=== PATIENT | male | born 1965 | race African-American/Black ===

== ENCOUNTER 2017-11-07 20:16 | Emergency (ER) | payer SELFPAY ==
[~2017-11-07] VITALS: Ht 180.3 cm; Wt 113.6 kg
[2017-11-07 20:17] VITALS: BP 149/83; PULSE 88; RESP 20; O2SAT 100
[2017-11-07 20:21] VITALS: BP_SYST 123; BP_SYST 149; BP_DIAS 83; BP_DIAS 84; PULSE 88; RESP 20; TEMP 98.6; O2SAT 100
[2017-11-07] MEDS: LORazepam 1 MG TAB PO ONE ×2 (20:30→20:38)
[2017-11-07] MEDS ORDERED: SODIUM CHLORIDE 0.9% FLUSH 10 ML FLUSH IVF PRN (20:30)
--- NOTE | 2017-11-07 20:36 | PD ---
HPI Chief Complaint: Chest Pain Time Seen by Provider: 20:19 Travel History International Travel<30 days: No Contact w/Intl Traveler<30days: No Traveled to known affect area: No History of Present Illness HPI This patient complains of chest pain. Location is center sternum. Feels like an aching pressure. Duration 2 hours. Severity is moderate. However it has resolved. He is currently pain-free. He has history of cardiac disease. He has 2 stents placed in his home town in [place]. He is on vacation. Patient is a hypertensive diabetic with severe sleep apnea and anxiety. No alleviating factors. No exacerbating factors. He was at a wineand cheese tasting event at a hotel and reportedly had 4 drinks. [facility] Past Medical History Medical History: Unable to Obtain Tetanus Vaccination: Unknown Influenza Vaccination: No Social History Alcohol Use: Yes (wine/today) Tobacco Use: No Substance Use: No Allergies-Medications (Allergen,Severity, Reaction): Coded Allergies: acetaminophen (Verified Allergy, Unknown, 11/07/17) hydrocodone (Verified Allergy, Unknown, 11/07/17) Reported Meds & Prescriptions Reported Meds & Active Scripts Active Active Prescriptions or Reported Medications Unobtainable Review of Systems General / Constitutional: No: Fever Eyes: No: Visual changes HENT: No: Headaches Cardiovascular: Positive: Chest Pain or Discomfort Respiratory: No: Shortness of Breath Gastrointestinal: No: Abdominal Pain Genitourinary: No: Dysuria Musculoskeletal: No: Pain Skin: No Rash Neurologic: No: Weakness Psychiatric: Positive: Anxiety, No: Depression Endocrine: No: Polydipsia Hematologic/Lymphatic: No: Easy Bruising Physical Exam Narrative GENERAL: Well-nourished, well-developed patient in no apparent distress. SKIN: Focused skin assessment reveals no rash and nodules. Skin is Warm and dry. HEAD: Atraumatic. Normocephalic. EYES: Pupils equal and round. No scleral icterus. No injection or drainage. ENT: No nasal bleeding or discharge. Mucous membranes pink and moist. NECK: Trachea midline. No JVD. CARDIOVASCULAR: Regular rate and rhythm. No murmur appreciated. RESPIRATORY: No accessory muscle use. Clear to auscultation. Breath sounds equal bilaterally. GASTROINTESTINAL: Abdomen soft, non-tender, nondistended. Hepatic and splenic margins not palpable. MUSCULOSKELETAL: No obvious deformities. No clubbing. No cyanosis. No edema. NEUROLOGICAL: Awake and alert. No obvious cranial nerve deficits. Motor grossly within normal limits. Normal speech. PSYCHIATRIC: Appropriate mood and affect; insight and judgment normal. Data Data Last Documented VS Vital Signs Date Time Temp Pulse Resp B/P (MAP) Pulse Ox O2 Delivery O2 Flow Rate FiO2 11/07/17 20:44 18 100 Room Air 11/07/17 20:21 98.6 88 Orders Orders Electrocardiogram (11/07/17 20:30) Basic Metabolic Panel (Bmp) (11/07/17 20:30) Ckmb (Isoenzyme) Profile (11/07/17 20:30) Complete Blood Count With Diff (11/07/17 20:30) Magnesium (Mg) (11/07/17 20:30) Prothrombin Time / Inr (Pt) (11/07/17 20:30) Act Partial Throm Time (Ptt) (11/07/17 20:30) Troponin I (11/07/17 20:30) Ecg Monitoring (11/07/17 20:30) Iv Access Insert/Monitor (11/07/17 20:30) Oximetry (11/07/17 20:30) Sodium Chloride 0.9% Flush (Ns Flush) (11/07/17 20:30) Alcohol (Ethanol) (11/07/17 20:30) Lorazepam (Ativan) (11/07/17 20:30) Lorazepam Inj (Ativan Inj) (11/07/17 21:00) Lorazepam Inj (Ativan Inj) (11/07/17 21:00) Restraints Non-Violent LISSA.Q3H (11/07/17 20:59) Drug Screen, Random Urine (11/07/17 20:59) Labs Laboratory Tests Test 11/07/17 20:37 White Blood Count 6.2 TH/MM3 Red Blood Count 4.14 MIL/MM3 Hemoglobin 12.2 GM/DL Hematocrit 35.2 % Mean Corpuscular Volume 85.0 FL Mean Corpuscular Hemoglobin 29.5 PG Mean Corpuscular Hemoglobin Concent 34.7 % Red Cell Distribution Width 12.7 % Platelet Count 155 TH/MM3 Mean Platelet Volume 10.1 FL Neutrophils (%) (Auto) 60.9 % Lymphocytes (%) (Auto) 25.1 % Monocytes (%) (Auto) 9.1 % Eosinophils (%) (Auto) 3.9 % Basophils (%) (Auto) 1.0 % Neutrophils # (Auto) 3.7 TH/MM3 Lymphocytes # (Auto) 1.6 TH/MM3 Monocytes # (Auto) 0.6 TH/MM3 Eosinophils # (Auto) 0.2 TH/MM3 Basophils # (Auto) 0.1 TH/MM3 CBC Comment DIFF FINAL Differential Comment Prothrombin Time 10.0 SEC Prothromb Time International Ratio 1.0 RATIO Activated Partial Thromboplast Time 23.3 SEC Blood Urea Nitrogen 52 MG/DL Creatinine 3.80 MG/DL Random Glucose 283 MG/DL Calcium Level 9.0 MG/DL Magnesium Level 2.2 MG/DL Sodium Level 136 MEQ/L Potassium Level 3.3 MEQ/L Chloride Level 102 MEQ/L Carbon Dioxide Level 28.4 MEQ/L Anion Gap 6 MEQ/L Estimat Glomerular Filtration Rate 17 ML/MIN Troponin I 0.04 NG/ML Ethyl Alcohol Level 127 MG/DL [facility] Medical Decision Making Medical Screen Exam Complete: Yes Emergency Medical Condition: Yes Medical Record Reviewed: Yes Differential Diagnosis Differential diagnosis includes OK, angina, pericarditis, pleurisy, GERD, anxiety. Narrative Course I have reviewed the patient's electronic medical record. I reviewed his EKG which shows sinus rhythm without ST elevation. IV placed and labs sent He took an aspirin prior to arrival Patient was very challenging and difficult to handle. He kept jumping out of the bed. He is very anxious. He on multiple occasions reported that he might punch staff. I did give him 1 mg IV Ativan He did not calm down. He would not listen to requests. We were considering restraints and more Ativan when he jumped out of bed and stormed out of the ER. His was present with him. She apologized for his poor behavior. We asked him to sign the AMA form but I am not sure if he did. Diagnosis Primary Impression: Chest pain Qualified Codes: R07.9 - Chest pain, unspecified Additional Impression: Anxiety Scripts Unable to Obtain Active Prescriptions or Reported Meds Disposition: 07 AGAINST MEDICAL ADVICE Rafael Lam MD Nov 07, 2017 20:36
[2017-11-07 20:44] VITALS: RESP 18; O2SAT 100
[2017-11-07 20:52] LABS: AUTOMATED NEUTROPHIL # 3.7 TH/MM3 (1.8-7.7); BASOPHIL # 0.1 TH/MM3 (0-0.2); EOSINOPHIL # 0.2 TH/MM3 (0-0.4); EOSINOPHIL % 3.9 % (0.0-4.0); HEMATOCRIT 35.2 % (39.0-51.0); HEMOGLOBIN 12.2 GM/DL (13.0-17.0); LYMPH % 25.1 % (9.0-44.0); LYMPHOCYTE # 1.6 TH/MM3 (1.0-4.8); MEAN CORPUSCULAR HEMOGLOBIN 29.5 PG (27.0-34.0); MEAN CORPUSCULAR HGB CONC 34.7 % (32.0-36.0); MEAN PLATELET VOLUME 10.1 FL (7.0-11.0); MONO % 9.1 % (0.0-8.0); MONOCYTE # 0.6 TH/MM3 (0-0.9); NEUT % 60.9 % (16.0-70.0); PLATELET COUNT 155 TH/MM3 (150-450); RED BLOOD COUNT 4.14 MIL/MM3 (4.50-5.90); RED CELL DISTRIBUTION WIDTH 12.7 % (11.6-17.2); WHITE BLOOD COUNT 6.2 TH/MM3 (4.0-11.0)
[2017-11-07] MEDS ORDERED: LORazepam 2 MG/ML VIAL IV PUSH ONE ×2 (21:00)
[2017-11-07 21:03] LABS: BICARBONATE 28.4 MEQ/L (21.0-32.0); MAGNESIUM 2.2 MG/DL (1.5-2.5)
[2017-11-07 21:06] LABS: CREATININE 3.8 MG/DL (0.60-1.30)
[2017-11-07 21:11] LABS: TROPONIN I 0.04 NG/ML (0.02-0.05)
--- NOTE | 2017-11-07 21:43 | EKG ---
Date Performed: 11/07/2017 Time Performed: 20:12:00 PTAGE: 52 years EKG: Probable limb lead reversal. Would suggest repeat EKG. DOCTOR: Lucas Shipman Interpretating Date/Time 11/07/2017 21:42:09
== END 2017-11-07 21:27 | disposition left against medical advice (07) ==
LOC: PHED 20:16
DX: R07.9 Chest pain, unspecified (principal); F41.9 Anxiety disorder, unspecified; I10 Essential (primary) hypertension; E11.9 Type 2 diabetes mellitus without complications; Z53.20 Procedure and treatment not carried out because of patient's decision for unspecified reasons
CPT/HCPCS: 80048; 80307; 82550; 82552; 83735; 84484; 85025; 85610; 85730; 93005; 96374; 99285; J2060